=== PATIENT | female | born 1980 | race Caucasian/White ===

== ENCOUNTER 2016-07-07 19:15 | Emergency (ER) | payer BC ==
[2016-07-07 19:28] VITALS: BP 139/89
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
--- NOTE | 2016-07-09 09:36 | CR ---
Thoracic spine: AP and lateral views of thoracic spine were obtained. Comparison: No previous study. Vertebral body heights and disc spaces are maintained. Pedicles are intact. No subluxation or fracture is seen. Impression: 1. No abnormality is identified on two-view thoracic spine study. Diagnostic code #1
== END 2016-07-07 22:32 | disposition home or self-care (01) ==
LOC: JD.ED 19:15
DX: M54.6 Pain in thoracic spine (principal); E03.9 Hypothyroidism, unspecified; Z88.2 Allergy status to sulfonamides; Z88.8 Allergy status to other drugs, medicaments and biological substances; Z79.82 Long term (current) use of aspirin
CPT/HCPCS: 36415; 72070; 72070-26; 80053; 81001; 82977; 83690; 85025; 86140; 99283; 99284